=== PATIENT | female | born 1945 ===

== ENCOUNTER 2018-09-18 14:42 | Day surgery (SDC) | payer OTHER, MEDICARE, MEDICAID ==
[2018-09-17 11:31] VITALS: BMI 33.5
[2018-09-18] MEDS ORDERED: Lidocaine PF 2% (5 ml) Inj (For Cardiac Arrhy) ONE (15:16)
[2018-09-18] MEDS ORDERED: Verapamil 2 ML ONE (15:16)
[2018-09-18] MEDS ORDERED: Iodixanol 320 MG/ML 200 ML BOTTLE IV ONE (15:17)
[2018-09-18] MEDS ORDERED: Iohexol 350mgl/ml 50 ML ONE (15:17)
[2018-09-18] MEDS ORDERED: Nitroglycerin 50mg in D5W 50 MG/250 ML BOTTLE IV ONE (15:17)
[2018-09-18] MEDS ORDERED: Heparin 2,000 ML IV ONE (15:17)
[2018-09-18] MEDS ORDERED: DiphenhydrAMINE 50 mg/ml Inj ONE (15:18)
[2018-09-18] MEDS ORDERED: Famotidine 20mg/50ml 20 MG/50 ML BAG IVPB ONE (15:18)
[2018-09-18] MEDS ORDERED: Midazolam 2 MG/2 ML VIAL ONE ×2 (15:51→16:04)
[2018-09-18] MEDS ORDERED: Naloxone 0.4 mg/ml Inj (Adult) ONE (16:07)
[2018-09-18] MEDS ORDERED: Flumazenil 0.1 mg/ml Inj (5ml) IVP ONE (16:09)
[2018-09-18] MEDS ORDERED: Bacitracin 500 Units/gm Oint Foilpak UD TOP ONE (17:14)
[2018-09-18] MEDS ORDERED: Sodium Chloride 0.9% 1,000 ML IV SCH (17:15)
[2018-09-18 19:26] VITALS: RESP 18; TEMP 97.7
[2018-09-18] MEDS ORDERED: Bacitracin 500 Units/gm Oint Foilpak UD ONE (20:47)
[2018-09-18 21:40] VITALS: BP 134/80; PULSE 90
--- NOTE | 2018-09-18 21:51 | CARDCATH ---
PROCEDURE DATE: 09/18/2018 INDICATIONS: Ms. Spangler is a 73-year-old female, who was admitted to [facility] after undergoing a nuclear stress test, which was abnormal, the patient started having chest pains post stress test, and then was sent to the emergency room, at which time she was admitted for further evaluation and treatment. The results of the stress test were read as abnormal with multiple perfusion retests; therefore, she was transferred from [place] to [place] for further characterization and assessment of her abnormal stress test and episodes of chest pain. PROCEDURE PERFORMED: Left heart cauterization with selective right and left coronary angiogram via 6-Monegasque left radial arterial access, wristband for hemostasis, left ventriculogram. TECHNIQUES OF PROCEDURE: After obtaining informed consent, the patient was brought to cardiac catheterization suite in post-absorptive and non-sedated state. The patient was prepped and draped in the usual sterile fashion. A 2% lidocaine was used for infiltration of anesthesia. Using modified Seldinger technique, a 6-Monegasque sheath was introduced into the left radial artery. Subsequently, over an exchange length J-wire, JL4 and JR4 diagnostic catheters were used to engage the left and right coronary system. Angiograms were obtained in different orthogonal views. Subsequently, over exchange length J-wire, a pigtail catheter was advanced across the aortic valve into the LV. LV gram was obtained and hemodynamics were obtained. Subsequently, pullback gradients were calculated. HEMODYNAMICS: Left ventricular end-diastolic pressure was 12 mmHg. There was no gradient noted upon the aortic valve pullback. There was no AI and no AK. Left ventricular ejection fraction was estimated to be 55% to 60%. CORONARY ANATOMY: The left main is a large sized vessel, it bifurcates into left anterior descending and left circumflex coronary artery. LAD is a large sized vessel giving off two medium sized diagonal branches free of any obstructive disease. The left circumflex is a large-sized vessel that runs in the AV groove and gives off a medium sized obtuse marginal branch free of any obstructive disease. The left side circulation is very tortuous consistent with possible hypertensive heart disease. The RCA is a large-sized vessel free of any obstructive disease and gives off a right PDA and PLV branches. There was some mild slow flow phenomenon noted in the RCA. Left ventricular ejection fraction is normal at 60% to 65%. IMPRESSION: Hypertensive vascular disease. No evidence of obstructive coronary artery disease. Mild slow flow phenomenon noted in the right coronary artery. RECOMMENDATIONS: Continue aggressive medical management and risk factor modification. The patient can be transferred back to [facility] in 4 hours. We will consider to adding calcium channel blockers and statins. Thank you Dr. Mcghee for letting me to participate in the care of your patient. Dandre Morgan MD cc: Alex Mcghee MD.
== END 2018-09-18 21:39 | disposition short-term general hospital (02) ==
LOC: CATH 14:42 → 2RSO 16:45 → CATH 21:39
PROVIDERS: ATTEND Internal Medicine Interventional Cardiology
DX: R07.9 Chest pain, unspecified (principal); R94.39 Abnormal result of other cardiovascular function study; I11.9 Hypertensive heart disease without heart failure
CPT/HCPCS: 93458; 99152; C1769; C1894; J1200; J1644 ×2; J2250; J2310; J2930; J3010; Q9966; Q9967